=== PATIENT | female | born 2005 | race Caucasian/White ===

== ENCOUNTER 2024-03-03 23:32 | Emergency (ER) | payer OTHER, SELFPAY ==
[2024-03-03 23:34] VITALS: BP 147/90; PULSE 86; RESP 18; TEMP 37.1; O2SAT 99; BMI 23.3
--- NOTE | 2024-03-03 23:46 | HMH.EDGENADL ---
Discharge Plan Disposition Patient Disposition: Home, Self-Care Prescriptions Prescriptions: New lidocaine 5 % adhesive patch,medicated 1 patch topical DAILY PRN (Reason: pain) Qty: 30 0RF Rx Instructions: leave on most painful area for up to 12 hrs Referrals Follow up/Referrals: Provider,Referral, MD [Primary Care Provider] - See instructions Chantal Hinds DPM [Staff Physician] - See instructions Activity Restrictions/Add. Instructions Additional Instructions/Restrictions: Please call on Wednesday to follow-up with our economic development coordinator. Please return to the emergency department if you develop any new or worsening symptoms or become concerned for your health. Clinical Impressions Clinical Impression: Acute foot pain Qualifiers: Laterality: right Qualified Code(s): M79.671 - Pain in right foot Discharge ED Provider: Stanley Pimentel General Adult HPI General Chief complaint: Extremity Injury, Lower Stated complaint: pain R foot Time Seen by Provider: 03/03/24 23:37 History of Present Illness HPI narrative: 18-year-old female without significant past medical history presents for right foot pain. She reports that she noticed it a couple weeks ago and it has been sore. The pains been worsening. [place] it [place] to get worse. She reports the pain is localized to the dorsum of the foot on the medial side over the first and second metatarsals. Denies any particular injury, but does report that she has been using a lot to stand up onto a curb at work. Related Data Previous Rx's Medication Instructions Recorded lidocaine 5 % topical patch 1 patch topical DAILY PRN pain #30 03/04/24 ea Allergies Allergy/AdvReac Type Severity Reaction Status Date / Time albuterol Allergy Vomiting Verified 03/04/24 00:05 cefprozil Allergy Vomiting Verified 03/04/24 00:05 sertraline [From Zoloft] Allergy Vomiting Verified 03/04/24 00:05 [facility] Disclaimer: The information contained in this section may have been updated after the patient was seen, as this information can be updated by other users. Social History Smoking Status: Current every day smoker alcohol intake: never current occupational status: employed Travel in the last 8 weeks: None ROS Obtained: Yes All systems reviewed & no additional complaints except as documented Physical Exam General General appearance: alert and in no apparent distress Head Head exam: atraumatic and normocephalic Eye Eye exam: Present normal appearance, PERRL and EOMI ENT ENT exam: Present normal oropharynx and normal external ear exam Neck Neck exam: Present normal inspection and full ROM Chest Chest inspection: Present normal inspection and symmetric chest wall rise; Absent tenderness Respiratory Respiratory exam: Present normal lung sounds bilaterally; Absent respiratory distress Cardiovascular Cardiovascular exam: Present regular rate and normal rhythm Abdominal Exam Abdominal exam: Present soft; Absent distention, tenderness or guarding Extremities Exam Extremities exam: Present other (Normal sensation and cap refill and pulses in the bilateral feet. Moderate tenderness over the dorsum of the first and second metatarsals on the right foot. Minimal swelling noted in that area, without erythema induration, cellulitis or abscess.) Back Exam Back exam: Present normal inspection; Absent tenderness Neurological Exam Neurological exam: Present alert and oriented X3; Absent motor sensory deficit Psychiatric Psychiatric exam: Present normal affect and normal mood Skin Skin exam: Present warm, dry and normal color Lymphatic Lymphatic Findings: no adenopathy Medical Decision Making Medical Records Medical records reviewed: Yes I reviewed the patient's medical records. Roberto Inquiry Pt receiving controlled substance: No Roberto was queried for this patient: No Vital Signs: 03/03/24 23:34 03/04/24 00:03 03/04/24 00:30 Temperature 98.8 F Temperature Source Oral Pulse Rate 70 69 Pulse Rate [Left Radial] 86 Respiratory Rate 18 Blood Pressure 144/81 H 128/76 Blood Pressure [Right Arm] 147/90 H Blood Pressure Mean [Right Arm] 109 Blood Pressure Source [Right Arm] Automatic Cuff Blood Pressure Position [Right Arm] Sitting 02 Sat by Pulse Oximetry 99 99 97 Oxygen Delivery Method Room Air 03/04/24 01:00 Temperature Temperature Source Pulse Rate 72 Pulse Rate [Left Radial] Respiratory Rate Blood Pressure 135/85 Blood Pressure [Right Arm] Blood Pressure Mean [Right Arm] Blood Pressure Source [Right Arm] Blood Pressure Position [Right Arm] 02 Sat by Pulse Oximetry 97 Oxygen Delivery Method Lab Data Lab results reviewed: Yes I reviewed the patient's lab results. Orders (Tests/Meds): ED MEDICATIONS Discontinued Medications Generic Name Dose Route Start Last Admin Trade Name Freq PRN Reason Stop Dose Admin Acetaminophen 1,000 mg 03/03/24 23:53 03/04/24 00:35 Acetaminophen 500mg Tab PO 03/03/24 23:54 1,000 mg ONCE ONE Administration Lidocaine 1 each 03/03/24 23:53 03/04/24 00:33 Lidocaine 5% Transdermal Patch TP 03/03/24 23:54 1 each ONCE ONE Administration ORDERS Category Date Time Status Foot XR right minimum 3 views [XR foot RT min 3V] Stat Exams 03/03/24 23:53 Completed Medical Decision Narrative: 18-year-old female without significant past medical history presents with a couple weeks of worsening right foot pain.. History was obtained via interactive discussion with patient. On arrival, patient is [afebrile, hemodynamically stable, satting appropriately, alert, oriented x4, GCS 15], moving all extremities spontaneously. Full physical exam performed and significant for findings as documented above. Differential includes but is not limited to fracture, dislocation, neurovascular/ligamentous injury, abscess, cellulitis, cyst, stress fracture. Patient was given Tylenol, lidocaine patch. She did ibuprofen prior to arrival. Workup initiated including radiograph of the right foot.. On re-evaluation, patient [remains afebrile, HD stable.] Imaging independently interpreted by me and significant for negative x-ray of the right foot without fracture or dislocation. See radiology read for full review of final results. CT was considered, but deemed unnecessary given patient is still ambulatory. Given patient history, exam and workup, patient's presentation most likely represents atraumatic right foot pain. May be a stress fracture. recommended to follow-up with our economic development coordinator for further assessment. Procedures Risk/Benefits of Procedure(s) Were Explained: Yes Critical Care Critical Care Time Critical Care Time: No
--- NOTE | 2024-03-03 23:53 | XR_ITS ---
PROCEDURE INFORMATION: Exam: XR Right Foot Exam date and time: 03/03/2024 11:49 PM Age: 18 years old Clinical indication: Pain; Foot; Right; Additional info: Subacute dorsal foot pain, increased activity TECHNIQUE: Imaging protocol: Radiologic exam of the right foot. Views: 3 or more views. Total images: 3 COMPARISON: No relevant prior studies available. FINDINGS: Bones/joints: No acute fracture or joint dislocation. No concerning bone lesions or calcifications. Unremarkable joint spaces. Soft tissues: Unremarkable soft tissues. IMPRESSION: Negative right foot.
[2024-03-04 00:03] VITALS: BP 144/81; PULSE 70; O2SAT 99
[2024-03-04 00:30] VITALS: BP 128/76; PULSE 69; O2SAT 97
[2024-03-04] MEDS: LIDOCAINE 5% TRANSDERMAL PATCH 1 EACH TP (00:33)
[2024-03-04] MEDS: ACETAMINOPHEN 500MG TAB 1000 MG PO (00:35)
--- NOTE | 2024-03-04 00:49 | PC.NURSE ---
rounded on pt at this time. pts s/o given 2 starrys. pt states pain is better but still hurts when she presses on area.
[2024-03-04 01:00] VITALS: BP 135/85; PULSE 72; O2SAT 97
--- NOTE | 2024-03-04 01:12 | PC.NURSE ---
rounded on pt at this time, pt voices no needs
--- NOTE | 2024-03-04 02:08 | PC.NURSE ---
Rounded on pt at this time. pt given warm blanket. Informed pt we are waiting on Xray report
[2024-03-04 02:11] VITALS: BP 153/98; PULSE 94; RESP 18; TEMP 36.8; O2SAT 97
--- NOTE | 2024-03-04 02:12 | PC.NURSE ---
pt refused walking boot
== END 2024-03-04 02:15 | disposition home or self-care (01) ==
PROVIDERS: Emergency Provider Emergency Medicine
DX: M79.671 Pain in right foot (principal); F17.210 Nicotine dependence, cigarettes, uncomplicated
CPT/HCPCS: 73630; 99283

== ENCOUNTER 2024-03-06 14:50 | Emergency (ER) | payer OTHER, SELFPAY ==
[2024-03-06 15:00] VITALS: BP 120/64; PULSE 77; RESP 18; TEMP 36.9; O2SAT 98; BMI 23.3
--- NOTE | 2024-03-06 15:04 | ED_ITS ---
Discharge Plan Disposition Patient Disposition: Home, Self-Care Condition: Good Prescriptions Prescriptions: New ibuprofen 600 mg tablet 600 mg PO Q6HP PRN (Reason: Mild Pain) Qty: 30 0RF No Action fluoxetine [Prozac] 10 mg Tablet 10 mg PO DAILY Referrals Follow up/Referrals: Provider,Referral, MD [Primary Care Provider] - See instructions Chantal Hinds DPM [Staff Physician] - See instructions Activity Restrictions/Add. Instructions Additional Instructions/Restrictions: Rest the extremity, apply ice for 15 minutes as tolerated three or four times per day, Wear the stanton wrap for compression, Elevate the extremity as tolerated while you are resting. Take ibuprofen for pain. I sent in a prescription to your pharmacy. Follow up with Dr. Hinds (podiatry). Sometimes there can be fractures that don't show up well on the first set of x-rays. So, you should follow up if you continue to have symptoms. I put in a referral but you need to call her office and schedule an appointment. Follow up with your regular doctor. GO TO THE ER FOR ANY WORSENING SYMPTOMS Clinical Impressions Clinical Impression: Right foot sprain, Foot pain, right Stand Alone Forms Stand Alone Forms: Work/School Release Instructions Patient Instructions: DI for Foot Pain, DI for Foot Sprain Discharge ED Provider: Ernesto Persaud [facility] General Stated complaint: AO 03/05/24- pain, swelling bruising R foot Time Seen by Provider: 03/06/24 15:03 History of Present Illness Provider Complaint: She states that she fell and twisted her right foot yesterday evening while [place]. Since then she has had pain and swelling of the middle of her foot. She also hurt this same foot about 2 weeks ago. She was seen in the ER several days ago for foot pain associated with that injury. She denies ankle pain, leg pain or any other complaints. Related Data Home Medications Medication Instructions Recorded Confirmed fluoxetine 10 mg tablet 10 mg PO DAILY 03/06/24 03/06/24 Previous Rx's Medication Instructions Recorded ibuprofen 600 mg tablet 600 mg PO Q6HP PRN Mild Pain #30 03/06/24 tabs Allergies Allergy/AdvReac Type Severity Reaction Status Date / Time albuterol Allergy Vomiting Verified 03/04/24 00:05 cefprozil Allergy Vomiting Verified 03/04/24 00:05 sertraline [From Zoloft] Allergy Vomiting Verified 03/04/24 00:05 [facility] Disclaimer: The information contained in this section may have been updated after the patient was seen, as this information can be updated by other users. Social History (Updated 03/04/24 @ 02:16 by Stanley Pimentel MD) Smoking Status: Current every day smoker alcohol intake: never current occupational status: employed Travel in the last 8 weeks: None ROS Obtained: Yes All systems reviewed & no additional complaints except as documented Constitutional Constitutional: Denies chills and Denies fever(s) Eyes Eyes: Denies eye discharge ENT Ears, Nose, Mouth, and Throat: Denies dizziness, Denies otalgia and Denies sore throat Cardiovascular Cardiovascular: Denies chest pain Respiratory Respiratory: Denies shortness of breath, Denies chest congestion, Denies cough, Denies stridor and Denies wheezing Gastrointestinal Gastrointestingal: Denies nausea or vomiting Musculoskeletal Musculoskeletal: Reports as per HPI Integumentary/Breasts Skin/Breast: Denies redness, Denies rash and Denies wounds Neurologic Neurologic: Denies dizziness and Denies paresthesias Allergic/Immunologic Allergic/Immunologic: Denies wheezing Physical Exam General General appearance: alert and in no apparent distress Head Head exam: atraumatic, normocephalic and normal inspection Eye Eye exam: Present normal appearance, PERRL and EOMI ENT ENT exam: Present normal exam, normal oropharynx, mucous membranes moist, TM's normal bilaterally and normal external ear exam Neck Neck exam: Present normal inspection, full ROM and trachea midline; Absent meningismus or lymphadenopathy Chest Chest inspection: Present normal inspection and symmetric chest wall rise; Absent tenderness Respiratory Respiratory exam: Present normal lung sounds bilaterally; Absent respiratory distress Cardiovascular Cardiovascular exam: Present regular rate and normal rhythm; Absent JVD Abdominal Exam Abdominal exam: Present soft and normal bowel sounds; Absent distention, tenderness or guarding Extremities Exam Extremities exam: Present normal capillary refill; Absent calf tenderness Expanded Lower Extremity Exam Right: Knee exam: Present normal inspection, full ROM and knee extension intact; Absent tenderness Lower leg exam: Present normal inspection, full ROM and Achilles tendon intact; Absent tenderness or Homans' sign Ankle exam: Present normal inspection and full ROM; Absent tenderness, swelling, abrasion, laceration, ecchymosis, deformity, crepitus, dislocation, erythema, tenderness over talofibular lig or anterior draw sign Foot/toe exam: Present full ROM, tenderness, swelling and erythema; Absent abrasion, laceration, ecchymosis, deformity, crepitus, dislocation, amputation, puncture wound, foreign body, calcaneal tenderness, tenderness at base of 5th metatarsal, nail avulsion or subungual hematoma Neurovascular/Tendon exam: Present normal capillary refill, normal 2-point discrimination and normal fine/light touch; Absent pulse deficit, motor deficit, sensory deficit, tendon deficit, extremity cold to touch or pallor Gait: observed and limited by pain Back Exam Back exam: Present normal inspection; Absent tenderness Neurological Exam Neurological exam: Present alert and oriented X3 Psychiatric Psychiatric exam: Present normal affect and normal mood Skin Skin exam: Present warm, dry, intact and normal color Lymphatic Lymphatic Findings: no adenopathy Medical Decision Making Medical Records Medical records reviewed: No I reviewed the patient's medical records. Roberto Inquiry Pt receiving controlled substance: No Radiology Data #1: Image(s): Foot/Toes Image Reviewed: Yes I reviewed the patient's radiology image Preliminary Findings: No Fracture Seen Medical Decision Narrative: She refused crutches. She states that she has a pair at home that she will use. Procedures Risk/Benefits of Procedure(s) Were Explained: Yes Orthopedic Splinting/Casting Injury #1: Side: right Lower Extremity Injury Location: ankle and foot Lower Extremity Immobilizer: Stanton wrap and applied by nurse/dr mackay Post Cast/Splinting Neuro Status: intact and no change Post Cast/Splinting Vasc Status: intact and no change
--- NOTE | 2024-03-06 15:11 | XR_ITS ---
FINAL REPORT CLINICAL HISTORY: pain FINDINGS: Right foot THREE VIEW FINDINGS: Three views show no evidence of an acute, displaced fracture or dislocation of the visualized bony architecture. The joint spaces appear normal. IMPRESSION: Unremarkable exam. Authenticated and ERN
[2024-03-06 15:58] VITALS: BP 120/64; PULSE 77; RESP 18; TEMP 36.9; O2SAT 98
== END 2024-03-06 16:01 | disposition home or self-care (01) ==
PROVIDERS: Emergency Provider Nurse Practitioner Family
DX: S93.601A Unspecified sprain of right foot, initial encounter (principal); M79.671 Pain in right foot; X50.1XXA Overexertion from prolonged static or awkward postures, initial encounter; F17.210 Nicotine dependence, cigarettes, uncomplicated
CPT/HCPCS: 73630; 99204; 99212; G0463

== ENCOUNTER 2024-05-04 17:02 | Emergency (ER) | payer OTHER, SELFPAY ==
[2024-05-04 17:33] VITALS: BP 132/81; PULSE 74; RESP 20; TEMP 37; O2SAT 100; BMI 23.4
[2024-05-04 17:53] LABS: UTC Pregnancy Test, Urine Negative (Negative)
--- NOTE | 2024-05-04 17:58 | EXP.UTC ---
Discharge Plan Disposition Patient Disposition: Home, Self-Care Condition: Good Prescriptions Prescriptions: No Action norgestimate-ethinyl estradiol [Estarylla] 0.25-35 mg-mcg tablet 1 tab PO DAILY naproxen [Naprosyn] 500 mg tablet 500 mg PO BID Qty: 60 0RF cyclobenzaprine 10 mg tablet 10 mg PO HS PRN (Reason: muscle spasm) Qty: 30 0RF fluoxetine [Prozac] 10 mg Tablet 10 mg PO DAILY Referrals Follow up/Referrals: Provider,Referral, MD [Primary Care Provider] - See instructions Activity Restrictions/Add. Instructions Additional Instructions/Restrictions: Follow up with your OBGYN if you have another positive home Return if needed Clinical Impressions Clinical Impression: Negative test Print Language Print Language: Chadian Discharge ED Provider: Martha Simpson [facility] HPI General Stated complaint: want a preg, test Mode of Arrival: Ambulatory Source of Information: Patient Time Seen by Provider: 05/04/24 17:58 Description of Symptoms (Recalled from Triage Doc. by RN): FAINT POST. PREGNACY TEST AT HOME. WANTS BLOOD TEST DONE. HEENT Symptoms (Recalled from RN notes): No Resp Symptoms (Recalled from RN notes): No Skin Symptoms (Recalled from RN notes): No MS Symptoms (Recalled from RN notes): No Functional Status (Recalled from RN notes): WNL History of Present Illness Provider Complaint: Patient states that she took a urine home test and it had a faint line States that she wanted to come in and get a blood test done to see if she is or is not Related Data Home Medications ?Medication ?Instructions ?Recorded ?Confirmed fluoxetine 10 mg tablet 10 mg PO DAILY 03/06/24 04/07/24 norgestimate 0.25 mg-ethinyl 1 tab PO DAILY 04/07/24 04/07/24 estradiol 35 mcg tablet (Estarylla) Previous Rx's ?Medication ?Instructions ?Recorded cyclobenzaprine 10 mg tablet 10 mg PO HS PRN muscle spasm #30 04/07/24 tabs naproxen 500 mg tablet (Naprosyn) 500 mg PO BID #60 tabs 04/07/24 Allergies Allergy/AdvReac Type Severity Reaction Status Date / Time albuterol Allergy Vomiting Verified 04/07/24 11:04 cefprozil Allergy Vomiting Verified 08/23/24 11:04 sertraline [From Zoloft] Allergy Vomiting Verified 04/07/24 11:04 Worker's Comp Is this a Worker's Comp case?: No [facility] Disclaimer: The information contained in this section may have been updated after the patient was seen, as this information can be updated by other users. Surgical History (Updated 04/07/24 @ 11:06 by KULDEEP Ovalles) History of placement of ear tubes Hx of tonsillectomy Hx of elbow surgery Social History (Updated 04/07/24 @ 11:08 by KULDEEP Ovalles) Smoking Status: Never smoker alcohol intake: never substance use type: denies use current occupational status: employed Travel in the last 8 weeks: None ROS Obtained: Yes All systems reviewed & no additional complaints except as documented and Yes Systems reviewed as appropriate & no additional complaints except as documented Constitutional Constitutional: Reports system reviewed and no additional complaints, except as documented and Reports as per HPI ENT Ears, Nose, Mouth, and Throat: Reports system reviewed and no additional complaints, except as documented and Reports as per HPI Cardiovascular Cardiovascular: Reports system reviewed and no additional complaints, except as documented and Reports as per HPI Respiratory Respiratory: Reports system reviewed and no additional complaints, except as documented and Reports as per HPI Gastrointestinal Gastrointestingal: Reports system reviewed and no additional complaints, except as documented and as per HPI Genitourinary Female Genitourinary: Reports system reviewed and no additional complaints, except as documented, Reports as per HPI and Reports other (positive home test) Physical Exam General General appearance: in no apparent distress Respiratory Respiratory exam: Present normal lung sounds bilaterally; Absent respiratory distress or wheezes Cardiovascular Cardiovascular exam: Present regular rate, normal rhythm and normal heart sounds Abdominal Exam Abdominal exam: Present soft and normal bowel sounds; Absent distention or tenderness Neurological Exam Neurological exam: Present alert, oriented X3 and normal gait Medical Decision Making Medical Records Screening: Per USPSTF and CDC recommendations, given the prevalence of disease in our region, it is our hospital?s policy to screen for HIV and viral Hepatitis for all patients aged 18 and over and those with ongoing risk factors. Roberto Inquiry Pt receiving controlled substance: No Roberto was queried for this patient: No Vital Signs: 05/04/24 17:33 Temperature 98.6 F Temperature Source Oral Pulse Rate [Left Brachial] 74 Respiratory Rate 20 Blood Pressure [Left Arm] 132/81 Blood Pressure Mean [Left Arm] 98 02 Sat by Pulse Oximetry 100 Lab Data Lab results reviewed: Yes I reviewed the patient's lab results. Lab Results 05/04/24 17:41: [facility] Negative Orders (Tests/Meds): ORDERS Category Date Time Status HCG Qualitative, Serum Stat Lab 05/04/24 17:51 Ordered
[2024-05-04 18:48] LABS: HCG Qualitative, Serum Negative (Negative)
[2024-05-04 18:53] VITALS: BP 132/81; PULSE 74; RESP 20; TEMP 37
== END 2024-05-04 18:57 | disposition home or self-care (01) ==
PROVIDERS: Emergency Provider Nurse Practitioner
DX: Z32.02 Encounter for pregnancy test, result negative (principal)
CPT/HCPCS: 81025; 84703; 99212; G0463

== ENCOUNTER 2024-05-19 13:07 | Emergency (ER) | payer MEDICAID, SELFPAY ==
[2024-05-19 13:22] VITALS: BP 127/72; PULSE 86; RESP 16; TEMP 36.7; O2SAT 98; BMI 23.3
[2024-05-19 13:30] LABS: UTC Strep Screen (Rapid) Negative (Negative)
--- NOTE | 2024-05-19 13:33 | EXP.UTC ---
Discharge Plan Disposition Patient Disposition: Home, Self-Care Condition: Good Prescriptions Prescriptions: No Action norgestimate-ethinyl estradiol [Estarylla] 0.25-35 mg-mcg tablet 1 tab PO DAILY naproxen [Naprosyn] 500 mg tablet 500 mg PO BID Qty: 60 0RF cyclobenzaprine 10 mg tablet 10 mg PO HS PRN (Reason: muscle spasm) Qty: 30 0RF fluoxetine [Prozac] 10 mg Tablet 10 mg PO DAILY Referrals Follow up/Referrals: Provider,Referral, [Primary Care Provider] - See instructions Activity Restrictions/Add. Instructions Additional Instructions/Restrictions: *Monitor Temp, Over the counter Motrin or Tylenol as directed/as needed Tylenol every 4 hours and Motrin every 6 hours (as long as your family doctor has told you that you can take it) for fever or pain. and straight to ER if unable to lower temp less than 101.0 after medication given *Warm salt water gargles may help to soothe the throat *Throat Lozenges? *Warm fluids like tea with honey may help to soothe the throat? *Sleep elevated *Humidifier/Vaporizer *Your throat swab was sent for culture. Those results are typically sent to your primary care. Be sure to follow up in 2-3 days with your family doctor/primary care physician if no improvement so they can review those result and treat if necessary. If you don?t have a primary care doctor, I recommend you get one but in the mean time, you will have to return to a walk in clinic Follow up IMMEDIATELY for new or worsening symptoms or no Noticeable improvement over the next 48-72 hours. 911 for difficulty breathing or swallowing Clinical Impressions Clinical Impression: Viral upper respiratory infection Instructions Patient Instructions: Sore Throat, DI for Headache Print Language Print Language: Pashto Discharge ED Provider: Martha Simpson [facility] [place] [facility] [place] General Stated complaint: headache, sore throat, fever Mode of Arrival: Ambulatory Source of Information: Patient Limitations: No Limitations Time Seen by Provider: 05/19/24 13:33 Description of Symptoms (Recalled from Triage Doc. by RN): Reports headache, sore throat, drainage, and fatigue. HEENT Symptoms (Recalled from RN notes): Yes Resp Symptoms (Recalled from RN notes): No Skin Symptoms (Recalled from RN notes): No MS Symptoms (Recalled from RN notes): No Functional Status (Recalled from RN notes): wnl History of Present Illness Provider Complaint: Patient states that she has been around her niece that has been sick and she has been having sore throat, headache, and over all not feeling well States today she was still not feeling and her throat was hurting worse so she came in to get checked Related Data Home Medications ?Medication ?Instructions ?Recorded ?Confirmed fluoxetine 10 mg tablet 10 mg PO DAILY 03/06/24 04/07/24 norgestimate 0.25 mg-ethinyl 1 tab PO DAILY 04/07/24 04/07/24 estradiol 35 mcg tablet (Estarylla) Previous Rx's ?Medication ?Instructions ?Recorded cyclobenzaprine 10 mg tablet 10 mg PO HS PRN muscle spasm #30 04/07/24 tabs naproxen 500 mg tablet (Naprosyn) 500 mg PO BID #60 tabs 04/07/24 Allergies Allergy/AdvReac Type Severity Reaction Status Date / Time albuterol Allergy Vomiting Verified 04/07/24 11:04 cefprozil Allergy Vomiting Verified 04/07/24 11:04 sertraline [From Zoloft] Allergy Vomiting Verified 04/07/24 11:04 Worker's Comp Is this a Worker's Comp case?: No [facility] Disclaimer: The information contained in this section may have been updated after the patient was seen, as this information can be updated by other users. Surgical History (Updated 04/07/24 @ 11:06 by KULDEEP Ovalles) History of placement of ear tubes Hx of tonsillectomy Hx of elbow surgery Social History (Updated 04/07/24 @ 11:08 by KULDEEP Ovalles) Smoking Status: Never smoker alcohol intake: never substance use type: denies use current occupational status: employed Travel in the last 8 weeks: None ROS Obtained: Yes All systems reviewed & no additional complaints except as documented and Yes Systems reviewed as appropriate & no additional complaints except as documented Constitutional Constitutional: Reports system reviewed and no additional complaints, except as documented, Reports as per HPI, Reports body ache and Reports headache(s) ENT Ears, Nose, Mouth, and Throat: Reports system reviewed and no additional complaints, except as documented, Reports as per HPI, Reports headache(s) and Reports sore throat Cardiovascular Cardiovascular: Reports system reviewed and no additional complaints, except as documented and Reports as per HPI Respiratory Respiratory: Reports system reviewed and no additional complaints, except as documented and Reports as per HPI Gastrointestinal Gastrointestingal: Reports system reviewed and no additional complaints, except as documented and as per HPI Neurologic Neurologic: Reports headache(s) Physical Exam General General appearance: alert and in no apparent distress ENT ENT exam: Present mucous membranes moist Expanded ENT Exam Nose exam: Absent sinus tenderness Throat exam: Present other (pharyngeal erythema noted with PND) Respiratory Respiratory exam: Present normal lung sounds bilaterally; Absent respiratory distress or wheezes Cardiovascular Cardiovascular exam: Present regular rate, normal rhythm and normal heart sounds Neurological Exam Neurological exam: Present alert, oriented X3 and normal gait Medical Decision Making Medical Records Screening: Per USPSTF and CDC recommendations, given the prevalence of disease in our region, it is our hospital?s policy to screen for HIV and viral Hepatitis for all patients aged 18 and over and those with ongoing risk factors. Roberto Inquiry Pt receiving controlled substance: No Roberto was queried for this patient: No Vital Signs: 05/19/24 13:22 Temperature 98.1 F Temperature Source Oral Pulse Rate [Radial] 86 Respiratory Rate 16 Blood Pressure [Right Arm] 127/72 Blood Pressure Mean [Right Arm] 90 Blood Pressure Source [Right Arm] Automatic Cuff Blood Pressure Position [Right Arm] Sitting 02 Sat by Pulse Oximetry 98 Oxygen Delivery Method Room Air Lab Data Lab results reviewed: Yes I reviewed the patient's lab results. Lab Results 05/19/24 13:24: Strep Scn Rapid Clinic Negative Orders (Tests/Meds): ORDERS Category Date Time Status Strep Screen Confirmation Stat Micro 05/19/24 13:24 Received
[2024-05-19 13:44] VITALS: BP 127/72; PULSE 86; RESP 16; TEMP 36.7; O2SAT 98
== END 2024-05-19 13:45 | disposition home or self-care (01) ==
PROVIDERS: Emergency Provider Nurse Practitioner
DX: J06.9 Acute upper respiratory infection, unspecified (principal); R51.9 Headache, unspecified; J02.9 Acute pharyngitis, unspecified; R50.9 Fever, unspecified
CPT/HCPCS: 87880; 99212; G0381

== ENCOUNTER 2024-06-12 16:10 | Outpatient (CLI) | payer MEDICAID, SELFPAY ==
[2024-06-12 17:07] LABS: HCG,Quantitative < 2 mIU/ml (0-5.42)
== END 2024-06-12 23:59 | disposition home or self-care (01) ==
LOC: LAB 16:11
PROVIDERS: Visit Provider Obstetrics & Gynecology
DX: Z34.90 Encounter for supervision of normal pregnancy, unspecified, unspecified trimester (principal)
CPT/HCPCS: 36415; 84702